=== PATIENT | male | born 2005 | race Caucasian/White ===

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

== ENCOUNTER 2023-07-13 12:40 | Outpatient (RCR) | payer OTHER, SELFPAY ==
--- NOTE | 2023-07-14 15:59 | HP.OTEVAL ---
Patient's Visit Information Visit Information Visit Information: KRISTAL BOWENS is a 17 year old M, referred to Occupational Therapy by Dr. Adrián Simpson, DO, with a diagnosis of right RF proximal phalanx fx.. Date of Evaluation: 07/13/23 Occupational Therapist: Bonnie Adan, OTR/Lucia, CHT Subjective Subjective: This 17 year old male was seen for OT eval with dx of Contusion of right RF w/o damage to nail, Displaced fx of distal phalanx of left RF. DOI 05/01/23. Pt states he was able to leave and go to [place] for care-(x-ray & splint) and was seen than by Dr. Simpson a few days later. pt works for [employer] pt has been employed since December 2022. 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 ROM MP: right RF 0/85 left 80 PIP: right 0/105 left 100 DIP: right 0/40 left +5/ 45 ROM Comments: pt reports he can make a fist without difficulty Much better than a few weeks ago. Strength Heat [employer] Frost Insulator: right 120# left 100# Lateral Pinch: right 22# left 26# Tripod Pinch: right 16# left 18# Sensation Sensation Comments: denies Quick DASH-Disab of Arm,Shoulder& Hand Quick DASH Score: 0 Rehabilitation General Assessment: pt demo with ROM and strength WNL- pt reports he is IND with all ADLs and IADLs and having no issues at work- pt does not demo need for skilled OT service at this time. Pt agrees to and happy to not have to have therapy. Rehabilitation Potential: Good Visit Plan TEXT: Thank you for the opportunity to evaluate your patient. For Medicare and Medicare HMO plans, please review the plan of care and approve it. It will need to be FAXED BACK to us at [phone] for Medicare purposes. Please let me know if there are questions or concerns regarding this plan of care. Physician Signature: Date:
== END 2023-07-13 19:00 | disposition home or self-care (01) ==
LOC: OT 12:40
PROVIDERS: PCP Family Medicine; Visit Provider Orthopaedic Surgery
DX: S60.041D Contusion of right ring finger without damage to nail, subsequent encounter (principal); S62.635D Displaced fracture of distal phalanx of left ring finger, subsequent encounter for fracture with routine healing
CPT/HCPCS: 97166

== ENCOUNTER → 2024-09-23 | Outpatient (CLI) | payer BC, SELFPAY ==
--- NOTE | 2024-09-23 16:07 | RAD_ITS ---
STUDY: X-RAY - LUMBAR SPINE REASON FOR EXAM: Male, 19 years old. Mass effect on. TECHNIQUE: 2 view(s) of the lumbar spine were obtained. COMPARISON: None FINDINGS: Normal lumbar lordosis. There is no substantial scoliosis. There is a normal alignment of the vertebrae. Normal vertebral bodies and endplates. Normal disc space heights. The soft tissue structures are unremarkable. RAD/Lumbar Spine 2 or 3 Views IMPRESSION: Normal x-ray examination of the lumbar spine. Electronically Signed: Mauri Ruiz MD at 10:27 EST ,
== END | disposition home or self-care (01) ==
LOC: MTRAD 16:07
PROVIDERS: PCP Family Medicine; Referring Provider Family Medicine; Visit Provider Family Medicine
DX: M54.50 Low back pain, unspecified (principal)
CPT/HCPCS: 72100

== ENCOUNTER → 2024-10-03 | Outpatient (CLI) | payer BC, SELFPAY ==
[2024-10-03 18:37] LABS: AST(SGOT) 18 U/L (15-37); Alanine Aminotransfer ALT/SGPT 32 U/L (16-61); Cholesterol 166 mg/dL (200); High Density Lipoprotein 36 mg/dL; Triglycerides 68 mg/dL; Very Low Density Lipoprotein 14 mg/dL (5-40)
== END | disposition home or self-care (01) ==
LOC: MTLAB 15:18
PROVIDERS: PCP Family Medicine; Referring Provider Physician Assistant; Visit Provider Physician Assistant
DX: L70.0 Acne vulgaris (principal); Z79.899 Other long term (current) drug therapy
CPT/HCPCS: 36415; 80061; 84450; 84460

== ENCOUNTER 2024-11-28 16:48 | Outpatient (RCR) | payer BC, SELFPAY ==
--- NOTE | 2024-11-28 18:02 | HP.PTEVAL ---
Patient's Visit Information Visit Information Visit Information: KRISTAL BOWENS is a 19 year old M referred to Physical Therapy by Dr. Jerrod Rashid MD with a diagnosis of LBP with R LE radiculopathy. Date of Evaluation: 11/28/24 Physical Therapist: Nico Montanez, PT, ATC Visit Plan Frequency: 1x/Week Duration: 2 Weeks Plan: Pt was issued and instructed on HS stretching and REIL. Pt to continue with I program for one month and then follow up or be discharged at that time. Subjective Subjective: Pt reports he has had LBP and R LE radiculopathy for a few months. Pt reports the R LE radiculopathy extends to the mid hamstring region. Pt reports no PMHx of R LE radiculopathy. Pt reports prolonged sitting always increases his LBP. Pt notes he is limited with his driving secondary to his LBP. Pt reports he has difficulty with standing and ambulating after sitting for prolonged period s of time. Pt reports he did recently have x-rays which revealed no significant findings. Pt denies sleep difficulty secondary to pain. Pt reports walking usually is the only way he can get rid of his pain. 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 0/10 pain while sitting here at rest, 8/10 pain at worst Pain LBP: Pain Intensity (Out of 10): 0 Pain Intensity Range: 8 Objective Objective: Neuro: B LE sensation is WNL to light touch. MMT: B LE's are strong and equal when compared bilaterally ROM: Pt is severely limited with L/S flexion today. All other motions are WFL Repeated movements: RFIS 10x3 NE. RIGOBERTO 10x3 better. Prone prop progression better. REIL best Special tests: pos 90/90 test (60 degree lag) Goals Goal 1:: I with HEP after one visit Goal Time Frame: 1 Week Rehabilitation Potential Physical Therapy Diagnosis: Pt has LBP and R LE radiculopathy secondary to a L/S disc derangement Rehabilitation Potential: Good Anticipated Interventions Patient/Client Instruction: Educate patient on: Condition and Plan of Care For the Purpose of:: To improve self management Therapeutic Exercise to Include: Endurance training, Body mechanics, Postural training, Dynamic Lumbar Stabilization and Beena Exercises For the Purpose of:: To decrease pain and To increase ROM Text: Thank you for the opportunity to evaluate your patient. For Medicare and Medicare HMO plans, please review the plan of care and approve it. It will need to be FAXED BACK to us at [phone] for Medicare purposes. For Medicare only, by signing this I certify the plan of care. Please let me know if there are questions or concerns regarding this plan of care. Physician Signature: Date:
--- NOTE | 2025-03-06 15:04 | HP.PT.NRP ---
Patient Information Patient Information: KRISTAL BOWENS was seen in my office for initial evaluation on 11/28/24. The following Plan of Care was established for this patient: POC Established Initial Frequency: 1x/Week Initial Duration: 2 Weeks Anticipated Interventions Patient/Client Instruction: Educate patient on: Condition and Plan of Care For the Purpose of:: To improve self management Therapeutic Exercise to Include: Endurance training, Body mechanics, Postural training, Dynamic Lumbar Stabilization and Beena Exercises For the Purpose of:: To decrease pain and To increase ROM Last Seen Last Seen: This patient was last seen in our office . Pertinent comments regarding their Physical therapy will appear below: Pt has not returned for greater than 30 days and is discontinued at this time. At this point I will be discontinuing this patient from physical therapy. I would be happy to see this patient again in the future if found appropriate by the physician. Thank you! Nico Montanez, PT, ATC
== END 2024-11-28 19:00 | disposition home or self-care (01) ==
LOC: PT 16:48
PROVIDERS: PCP Family Medicine; Referring Provider Family Medicine; Visit Provider Family Medicine
DX: M54.50 Low back pain, unspecified (principal)
CPT/HCPCS: 97161

== ENCOUNTER → 2024-12-14 | Outpatient (CLI) | payer BC, SELFPAY ==
[2024-12-14 18:25] LABS: AST(SGOT) 28 U/L (<=37); Alanine Aminotransfer ALT/SGPT 28 U/L (<=46); Cholesterol 200 mg/dL (<=190); High Density Lipoprotein 41 mg/dL; Low Density Lipoprotein Calc. 141 mg/dL; Triglycerides 89 mg/dL; Very Low Density Lipoprotein 18 mg/dL (5-40); cholesterol:hdl ratio screen 4.89
== END | disposition home or self-care (01) ==
LOC: MTLAB 15:20
PROVIDERS: PCP Family Medicine; Referring Provider Physician Assistant Medical; Visit Provider Physician Assistant Medical
DX: L70.0 Acne vulgaris (principal); Z79.899 Other long term (current) drug therapy
CPT/HCPCS: 36415; 80061; 84450; 84460

== ENCOUNTER → 2025-01-27 | Outpatient (CLI) | payer BC, SELFPAY ==
--- NOTE | 2025-01-27 11:43 | RAD_ITS ---
PROCEDURE: ABDOMEN SINGLE VIEW 01/27/2025 REASON FOR EXAM: ABDOMINAL PAIN,ACUTE TECHNIQUE: Single view abdomen. 3 total images to include the entire abdomen and pelvis COMPARISON: None available FINDINGS: Gaseous prominence of the sigmoid colon which is extending into the left upper quadrant without evidence of haustral fold thickening. Moderate amount of proximal colonic stool. The rectum appears nondistended, mostly collapsed. No gaseous distention of small bowel. No abnormal abdominal calcification identified. Visualized lung bases appear clear. Visualized osseous structures appear within limits. RAD/Abdomen Single View IMPRESSION: Gaseous prominence of the sigmoid. Moderate proximal colonic stool. No small bowel gaseous distention. Reading Location: [id number]
[2025-01-27 15:09] LABS: Hematocrit 44.9 % (40-54); Hemoglobin 15.1 g/dL (13.0-16.5); Mean Corp Hgb Conc 33.6 g/dL (32-36); Mean Corpuscular Hgb 28.1 pg (27.0-32.0); Mean Corpuscular Volume 83.6 fL (80-94); Mean Platelet Vol. 10.5 fl (6.2-12.0); Platelet Count 276 K/mm3 (150-450); RBC Distribution Width CV 12.8 % (11.6-14.6); RBC Distribution Width SD 38.9 fl (35.1-43.9); Red Blood Count 5.37 M/mm3 (4.6-6.2); White Blood Count 9.8 K/mm3 (4.4-11.0)
[2025-01-27 16:27] LABS: Magnesium 2.1 mg/dL (1.5-2.2)
== END | disposition home or self-care (01) ==
PROVIDERS: PCP Family Medicine
DX: R10.9 Unspecified abdominal pain (principal)
CPT/HCPCS: 36415; 74018; 83735; 85027

== ENCOUNTER → 2025-03-18 | Outpatient (CLI) | payer BC, SELFPAY ==
--- OUTSIDE RECORDS SUMMARY | 2025-03-18 11:39 | XMS RPT_ITS | CCD ---
Author Organization [facility] Care Team Providers Care Allergist/Pediatric Pulmonologist Name Role Phone Rachid YODER, Dr. Elder Primary Care Provider Rachid YODER, Dr. Elder Attending Provider Rachid YODER, Dr. Elder Referring Provider Graf CROWLEY-C, Salome Attending Provider Graf CROWLEY-C, Salome Referring Provider Alejandro Iraheta Attending Provider Alejandro Iraheta Referring Provider [phone] Rachid YODER, Dr. Elder Primary Care Provider Rachid YODER, Dr. Elder Attending Provider Rachid YODER, Dr. Elder Referring Provider [phone] McMorrow POWER PLANT TECHNICIAN-CGanesh Attending Provider [phone] McMorrow POWER PLANT TECHNICIAN-C, Ganesh Referring Provider Jerrod Rashid Attending Unavailable Jerrod Rashid Referring Unavailable Rachid, Jerrod Primary Care Unavailable Salome Abrams Attending Unavailable Salome Abrams Referring Unavailable Rashid, Jerrod Primary Care Unavailable Jerrod Rashid Attending Unavailable Jerrod Rashid Referring Unavailable Rachid, Jerrod Primary Care Unavailable Alejandro Iraheta Attending Unavailable Alejandro Iraheta Referring Unavailable Jerrod Rashid Primary Care Unavailable McMorrow POWER PLANT TECHNICIANGanesh Attending Unavailable Allanorrow POWER PLANT TECHNICIANGanesh Referring Unavailable Rachid Jerrod Primary Care Unavailable Medications Current Medications Medication Drug Class(es) Dates Sig (Normalized) Sig (Original) ARIPiprazole 10 mg oral tablet (5 sources) Atypical Antipsychotic Start: 08-30-2021 Aripiprazole 10 mg tablet Active NMA PO August 30, 2021 1:00am Start: 08-30-2021 Aripiprazole A ctive TAB PO August 30, 2021 12:00am FLUoxetine 40 mg oral capsule (5 sources) Serotonin Reuptake Inhibitor Start: 08-30-2021 Fluoxetine 40 mg capsule Active NMA PO August 30, 2021 1:00am Start: 08-30-2021 Fluoxetine Act olimpia CAP PO August 30, 2021 12:00am Multivitamin With Iron (2 sources) Start: 08-30-2021 take 1 tablet by mouth once daily Multivitamin With Iron Active 1 TABLET PO DAILY August 30, 2021 12:00am Multivitamin With Iron tablet (3 sources) Start: 08-30-2021 Multivitamin W ith Iron tablet Active 1 {tbl} PO DAILY August 30, 2021 1:00am Problems Problem Classification Problem Date Documented Date Episodic/Chronic Abdominal pain (1 source) Unspecified abdominal pain; Translations: [Unspecified abdominal pain] Onset: 02-02-2025 Episodic Administrative/social admission (4 sources) Administrative reason for encounter; Translations: [Encounter for other administrative examinations] 01-21-2023 Episodic Deficiency and other anemia (5 sources) Anemia; Translations: [Anemia, unspecified] 08-30-2021 Episodic Disorders usually diagnosed in infancy, childhood, or adolescence (5 sources) Autistic disorder; Translations: [Autistic disorder] 08-30-2021 Chronic Open wounds of head; neck; and trunk (5 sources) Laceration of forehead; Translations: [Laceration without foreign body of other part of head, initial encounter] 08-30-2021 Episodic Other skin disorders (1 source) Acne vulgaris; Translations: [Acne vulgaris] Onset: 12-15-2024 Episodic Unclassified (1 source) Low back pain, unspecified; Translations: [Low back pain, unspecified] Onset: 03-09-2025 Results Test Name Value Interpretation Reference Range Facility Abdomen Single Viewon 2024 Abdomen Single View [facility] Imaging Services [address] [place] [address] Abdomen Single View MR#: [id number] Acct: [id number] Name: KRISTAL BOWENS Rep #: [id number] : 2005 M 19 From: Jayesh Llanos MD PCP: Dr. Jerrod Rashid MD Status: REG CLI Study: Abdomen Single View Date of Exam: 01/27/25 Exam# [id number] Ordering Dr: Ganesh Loera NP, NP -C PROCEDURE: ABDOMEN SINGLE VIEW 01/27/2025 REASON FOR EXAM: ABDOMINAL PAIN,ACUTE TECHNIQUE: Single view abdomen. 3 total images to include the entire abdomen and pelvis COMPARISON: None available FINDINGS: Gaseous prominence of the sigmoid colon which is extending into the left upper quadrant without evidence of haustral fold thickening. Moderate amount of proximal colonic stool. The rectum appears nondistended, mostly collapsed. No gaseous distention of small bowel. No abnormal abdominal calcification identified. Visualized lung bases appear clear. Visualized osseous structures appear within limits. RAD/Abdomen Single View IMPRESSION: Gaseous prominence of the sigmoid. Moderate proximal colonic stool. No small bowel gaseous distention. Reading Location: [facility] CC: Ganesh Loera; Dr. Jerrod Rashid MD Manager Business Process: Signed Normal [facility] CBC-Complete Blood Cnt No Di ffon 01-27-2025 Erythrocyte distribution width (RBC) [Ratio] 12.8 % Normal 11.6-14.6 [facility] Comment on above: Order Comment: Order Date: 01/27/25 Order Info: [id number] - CBC Performed By: #### L 100.0500 #### [facility] [address] [place], [address] Hematocrit (Bld) [Volume fraction] 44.9 % Normal 40-54 [facility] Comment on above: Order Comment: Order Date: 01/27/25 Order Info: [id number] - CBC Performed By: #### L 100.0500 #### [facility] [address] [place], [address] Hemoglobin (Bld) [Mass/Vol] 15.1 g/dL Normal 13.0-16.5 [facility] Comment on above: Order Comment: Order Date: 01/27/25 Order Info: [id number] - CBC Performed By: #### L 100.0500 #### [facility] [address] [place], [address] MCH (RBC) [Entitic mass] 28.1 pg Normal 27.0-32.0 [facility] Comment on above: Order Comment: Order Date: 01/27/25 Order Info: [id number] - CBC Performed By: #### L 100.0500 #### [facility] [address] [place], [address] MCHC (RBC) [Mass/Vol] 33.6 g/dL Normal 32-36 [facility] Comment on above: Order Comment: Order Date: 01/27/25 Order Info: [id number] - CBC Performed By: #### L 100.0500 #### [facility] [address] [place], [address] MCV (RBC) [Entitic vol] 83.6 fL Normal 80-94 [facility] Comment on above: Order Comment: Order Date: 01/27/25 Order Info: [id number] - CBC Performed By: #### L 100.0500 #### [facility] [address] [place], [address] Platelet mean volume (Bld) [Entitic vol] 10.5 fL Normal 6.2-12.0 [facility] Comment on above: Order Comment: Order Date: 01/27/25 Order Info: [id number] - CBC Performed By: #### L 100.0500 #### [facility] [address] [place], [address] Platelets (Bld) [#/Vol] 276 10*3/uL Normal 150-450 [facility] Comment on above: Order Comment: Order Date: 01/27/25 Order Info: [id number] - CBC Performed By: #### L 100.0500 #### [facility] [address] [place], [address] RBC (Bld) [#/Vol] 5.37 10*6/uL Normal 4.6-6.2 [facility] Comment on above: Order Comment: Order Date: 01/27/25 Order Info: [id number] - CBC Performed By: #### L 100.0500 #### [facility] [address] [place], [address] RDW SD 38.9 fl Normal 35.1-43.9 [facility] Comment on above: Order Comment: Order Date: 01/27/25 Order Info: [id number] - CBC Performed By: #### L 100.0500 #### [facility] [address] [place], [address] WBC (Bld) [#/Vol] 9.8 10*3/uL Normal 4.4-11.0 [facility] Comment on above: Order Comment: Order Date: 01/27/25 Order Info: [id number] - CBC Performed By: #### L 100.0500 #### [facility] [address] [place], [address] Erythrocyte distribution wid th ratioOrdered By: Ganesh Loera on 01-27-2025 Erythrocyte distribution width (RBC) [Ratio] 12.8 % 11.6-14.6 [facility] Erythrocyte distribution wid th standard deviationOrdered By: Ganesh Loera on 01-27-2025 Erythrocyte distribution width (RBC) [Ratio] 38.9 fl 35.1-43.9 [facility] Hematocrit Auto (Bld) [Volum e fraction]Ordered By: Ganesh Loera on 01-27-2025 Hematocrit (Bld) [Volume fraction] 44.9 % 40-54 [facility] Hemoglobin measurementOrdere d By: Ganesh Loera on 01-27-2025 Hemoglobin (Bld) [Mass/Vol] 15.1 g/dL 13.0-16.5 [facility] MCV (mean corpuscular volume ) determinationOrdered By: Ganesh Loera on 01-27-2025 MCV (RBC) [Entitic vol] 83.6 fL 80-94 [facility] Magnesiumon 01-27-2025 Magnesium [Mass/Vol] 2.1 mg/dL Normal 1.5-2.2 [facility] Comment on above: Order Comment: KISHA Drummond FAX RESULTS TO [phone] Performed By: #### L 501.4100, L500.4100, L501.4403 #### [facility] [address] [place], [place], [address] Magnesium measurement (mass/ volume)Ordered By: Ganesh Loera on 01-27-2025 Magnesium (Unsp spec) [Mass/Vol] 2.1 mg/dL 1.5-2.2 [facility] Mean corpuscular hemoglobin (MCH) determinationOrdered By: Ganesh Evaristo on 01-27-2025 MCH (RBC) [Entitic mass] 28.1 pg 27.0-32.0 [facility] Mean corpuscular hemoglobin concentration (MCHC) determinationOrdered By: Ganesh Evaristo on 01-27-2025 MCHC (RBC) [Mass/Vol] 33.6 g/dL 32-36 [facility] Mean platelet volume determi nationOrdered By: Ganesh McMorrow on 01-27-2025 Platelet mean volume (Bld) [Entitic vol] 10.5 fL 6.2-12.0 [facility] Platelet countOrdered By: An justina McMorr on 01-27-2025 Platelets (Bld) [#/Vol] 276 10*3/uL 150-450 [facility] RBC Auto (Bld) [#/Vol]Ordere d By: Ganesh Allanorrerica on 01-27-2025 RBC (Bld) [#/Vol] 5.37 10*6/uL 4.6-6.2 [facility] White blood cell (WBC) count Ordered By: Ganesh Allanorrerica on 01-27-2025 WBC (Bld) [#/Vol] 9.8 10*3/uL 4.4-11.0 [facility] AST(SGOT)on 12-14-2024 AST [Catalytic activity/Vol] 28 U/L Normal <=37 [facility] Comment on above: Order Comment: KISHA Drummond FAX RESULTS TO [phone] Performed By: #### L 501.4100, L500.4100, L501.4405 #### [facility] [address] [place], [place], [address] Alanine Aminotransferas (SGP T)on 12-14-2024 ALT [Catalytic activity/Vol] 28 U/L Normal <=46 [facility] Comment on above: Order Comment: PLEAS E FAX RESULTS TO [phone] Performed By: #### L 501.4100, L500.4100, L501.4405 #### [facility] [address] [place], [place], [address] Calculated very low density lipoprotein (VLDL) cholesterol measurementOrdered By: Alejandro Porter on 12-14-2024 Calculated very low density lipoprotein (VLDL) cholesterol measurement 18 mg/dL 5-40 [facility] VLDL Cholesterol 18 mg/dL 5-40 [facility] LDL calc ser/plasOrdered By: Alejandro Porter on 12-14-2024 Cholesterol in LDL [Mass/Vol] 141 mg/dL [facility] Comment on above: Qahztmamdk=866-357 m g/dL & Higher Yfpt=553 mg/dL or greater LDL Cholesterol, Calculated 141 mg/dL [facility] Comment on above: Jsflsoplpf=882-866 m g/dL & Higher Brvw=290 mg/dL or greater Laboratory - Chemistry and C hemistry - challengeOrdered By: Alejandro Porter on 12-14-2024 AST [Catalytic activity/Vol] 28 U/L <38 [facility] Lipid Profileon 12-14-2024 CHOL:HDL 4.89 Normal [facility] Comment on above: Order Comment: PLEAS E FAX RESULTS TO [phone] Performed By: #### L 501.4100, L500.4100, L501.4405 #### [facility] [address] [place], [place], [address] Cholesterol [Mass/Vol] 200 mg/dL High <=190 [facility] Comment on above: Order Comment: PLEAS E FAX RESULTS TO [phone] Result Comment: Chol esterol level, Desirable <200 mg/dL Borderline high cholesterol 200-239 mg/dL High cholesterol >=240 mg/dL Recommendations of the NCEP Adult Treatment Panel for the following risk-cutoff thresholds for the [place] population. Performed By: #### L 501.4100, L500.4100, L501.4405 #### [facility] [address] [place], [address] Cholesterol in HDL [Mass/Vol] 41 mg/dL Normal [facility] Comment on above: Order Comment: PLEAS E FAX RESULTS TO [phone] Result Comment: [place] on[place] Cholesterol Education Program (NCEP) guidelines: <40 mg/dL: Low HDL-cholesterol (major risk factor for CHD) >= 60 mg/dL: High HDL-cholesterol (negative risk factor for CHD) HDL-cholesterol is affected by a number of factors, e.g. smoking, exercise, hormones, sex and age. Performed By: #### L 501.4100, L500.4100, L501.4405 #### [facility] [address] [place], [address] Cholesterol in LDL [Mass/Vol] 141 mg/dL Normal [facility] Comment on above: Order Comment: PLEAS E FAX RESULTS TO [phone] Result Comment: Bord rjalmm=611-504 mg/dL Higher Jblo=532 mg/dL or greater Performed By: #### L 501.4100, L500.4100, L501.4405 #### [facility] [address] [place], [address] Cholesterol in VLDL [Mass/Vol] 18 mg/dL Normal 5-40 [facility] Comment on above: Order Comment: PLEAS E FAX RESULTS TO [phone] Performed By: #### L 501.4100, L500.4100, L501.4405 #### [facility] [address] [place], [address] Triglyceride [Mass/Vol] 89 mg/dL Normal [facility] Comment on above: Order Comment: KISHA Drummond FAX RESULTS TO [phone] Result Comment: The drugs N-Acetylcysteine and Metamizole may falsely depress this assay. Normal range: <150 mg/dL Borderline High: 150-199 mg/dL High: 200-499 mg/dL Very High: >500 mg/dL Performed By: #### L 501.4100, L500.4100, L501.4405 #### [facility] [place], [address] Screening total cholesterol/ high density lipoprotein (HDL) cholesterol ratioOrdered By: Alejandro Porter on 12-14-2024 Cholesterol.total/Cholest cristal in HDL [Mass ratio] 4.89 {ratio} [facility] Serum or plasma alanine raya otransferase (ALT) measurementOrdered By: Alejandro Porter on 12-14-2024 ALT [Catalytic activity/Vol] 28 U/L <47 [facility] Serum or plasma cholesterol in HDL measurement (mass/volume)Ordered By: Alejandro Porter on 12-14-2024 Cholesterol in HDL [Mass/Vol] 41 mg/dL >40 [facility] Comment on above: National Cholesterol Education Program (NCEP) guidelines:<40 mg/dL: Low HDL-cholesterol (major risk factor for CHD)>= 60 mg/dL: High HDL-cholesterol (negative risk factor for CHD)HDL-cholesterol is affected by a number of factors, e.g. smoking, exercise, hormones, sex and age. Serum or plasma cholesterol measurement (mass/volume)Ordered By: Alejandro Porter on 12-14-2024 Cholesterol [Mass/Vol] 200 mg/dL High <191 [facility] Comment on above: Cholesterol level, D esirable <200 mg/dLBorderline high cholesterol 200-239 mg/dLHigh cholesterol >=240 mg/dLRecommendations of the NCEP Adult Treatment Panel for the following risk-cutoff thresholds for the [place] population. Triglycerides measurementOrd ered By: Alejandro Porter on 12-14-2024 Triglyceride [Mass/Vol] 89 mg/dL <199 [facility] Comment on above: The drugs N-Acetylcy steine and Metamizole may falsely depress this assay. Normal range: <150 mg/dLBorderline High: 150-199 mg/dLHigh: 200-499 mg/dLVery High: >500 mg/dL Inital Evaluation (1) - PTon 11-28-2024 Inital Evaluation (1) - PT [facility] [address] [place] [address] / REHABILITATION SERVICES INITIAL EVALUATION MR#: [id number] Acct: [id number] Name: KRISTAL BOWENS Rep #: [id number] : 2005 19 From: Nico Montanez PT, ATC Referring Dr.: Dr. Jerrod Rashid MD Status: REG R CR Insurance: [employer] [facility] [employer] [employer] Patient's Visit Information Visit Information Visit Information: KRISTAL BOWENS is a 19 year old M referred to Physical Therapy by Dr. Jerrod Rashid MD with a diagnosis of LBP with R LE radiculopathy. Date of Evaluation: 11/28/24 Physical Therapist: Nico Montanez, PT, ATC Visit Plan Frequency: 1x/Week Duration: 2 Weeks Plan: Pt was issued and instructed on HS stretching and REIL. Pt to continue with I program for one month and then follow up or be discharged at that time. Subjective Subjective: Pt reports he has had LBP and R LE radiculopathy for a few months. Pt reports the R LE radiculopathy extends to the mid hamstring region. Pt reports no PMHx of R LE radiculopathy. Pt reports prolonged sitting always increases his LBP. Pt notes he is limited with his driving secondary to his LBP. Pt reports he has difficulty with standing and ambulating after sitting for prolonged period s of time. Pt reports he did recently have x-rays which revealed no significant findings. Pt denies sleep difficulty secondary to pain. Pt reports walking usually is the only way he can get rid of his pain. 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 0/10 pain while sitting here at rest, 8/10 pain at worst Pain LBP: Pain Intensity (Out of 10): 0 Pain Intensity Range: 8 Objective Objective: Neuro: B LE sensation is WNL to light touch. MMT: B LE's are strong and equal when compared bilaterally ROM: Pt is severely limited with L/S flexion today. All other motions are WFL Repeated movements: RFIS 10x3 NE. RIGOBERTO 10x3 better. Prone prop progression better. REIL best Special tests: pos 90/90 test (60 degree lag) Goals Goal 1:: I with HEP after one visit Goal Time Frame: 1 Week Rehabilitation Potential Physical Therapy Diagnosis: Pt has LBP and R LE radiculopathy secondary to a L/S disc derangement Rehabilitation Potential: Good Anticipated Interventions Patient/Client Instruction: Educate patient on: Condition and Plan of Care For the Purpose of:: To improve self management Therapeutic Exercise to Include: Endurance training, Body mechanics, Postural training, Dynamic Lumbar Stabilization and Beena Exercises For the Purpose of:: To decrease pain and To increase ROM Text: Thank you for the opportunity to evaluate your patient. For Medicare and Medicare HMO plans, please review the plan of care and approve it. It will need to be FAXED BACK to us at [phone] for Medicare purposes. For Medicare only, by signing this I certify the plan of care. Please let me know if there are questions or concerns regarding this plan of care. Physician Signature: Date: ____ 11/28/24 1802 CC: Dr. Jerrod Rashid MD [facility] Signed Normal [facility] AST(SGOT)on 10-03-2024 AST [Catalytic activity/Vol] 18 U/L Normal 15-37 [facility] Comment on above: Performed By: #### L 501.4100, L500.4100, L501.4405 #### [facility] [address] [place], [address] Alanine Aminotransferas (SGP T)on 10-03-2024 ALT [Catalytic activity/Vol] 32 U/L Normal 16-61 [facility] Comment on above: Performed By: #### L 501.4100, L500.4100, L501.4405 #### [facility] [address] [place], [address] High density lipoprotein (HD L) measurementOrdered By: Salome Joseph on 10-03-2024 Cholesterol in HDL [Mass/Vol] 36 mg/dL Low >40 [facility] Comment on above: The drugs N-Acetylcy steine and Metamizole may falsely depress this assay. Reference Range HDL <40 mg/dL Low HDL Cholesterol HDL >or= 60 mg/dL High HDL Cholesterol Laboratory - Chemistry and C hemistry - challengeOrdered By: Salome Joseph on 10-03-2024 AST [Catalytic activity/Vol] 18 U/L 15-37 [facility] Lipid Profileon 10-03-2024 Cholesterol [Mass/Vol] 166 mg/dL Normal 200 [facility] Comment on above: Result Comment: <200 mg/dL Desirable 200-240 mg/dL Borderline >240 mg/dL High Risk Performed By: #### L 501.4100, L500.4100, L501.4405 #### [facility] [address] [place], [address] Cholesterol in HDL [Mass/Vol] 36 mg/dL Low [facility] Comment on above: Result Comment: The drugs N-Acetylcysteine and Metamizole may falsely depress this assay. Reference Range HDL <40 mg/dL Low HDL Cholesterol HDL >or= 60 mg/dL High HDL Cholesterol Performed By: #### L 501.4100, L500.4100, L501.4405 #### [facility] [address] [place], [address] Cholesterol in LDL [Mass/Vol] 116 mg/dL Normal 0-130 [facility] Comment on above: Performed By: #### L 501.4100, L500.4100, L501.4405 #### [facility] [address] [place], [address] Cholesterol in VLDL [Mass/Vol] 14 mg/dL Normal 5-40 [facility] Comment on above: Performed By: #### L 501.4100, L500.4100, L501.4405 #### [facility] [address] [facility] [place], [place], [address] Triglyceride [Mass/Vol] 68 mg/dL Normal [facility] Comment on above: Result Comment: The drugs N-Acetylcysteine and Metamizole may falsely depress this assay. Serum Triglycerides Reference Interval Normal <150 mg/dL Borderline high 150 - 199 mg/dL High 200 - 499 mg/dL Very High > or = 500 mg/dL Performed By: #### L 501.4100, L500.4100, L501.4405 #### [facility] [address] [facility] [place], [place], [address] Low density lipoprotein (LDL ) cholesterol measurementOrdered By: Salome Joseph on 10-03-2024 Cholesterol in LDL [Mass/Vol] 116 mg/dL 0-130 [facility] Serum or plasma alanine raya otransferase (ALT) measurementOrdered By: Salome Joseph on 10-03-2024 ALT [Catalytic activity/Vol] 32 U/L 16-61 [facility] Serum or plasma cholesterol measurement (mass/volume)Ordered By: Salome Joseph on 10-03-2024 Cholesterol [Mass/Vol] 166 mg/dL <200 [facility] Comment on above: <200 mg/dL Desirable 200-240 mg/dL Borderline >240 mg/dL High Risk Triglycerides measurementOrd ered By: Salome Joseph on 10-03-2024 Triglyceride [Mass/Vol] 68 mg/dL <199 [facility] Comment on above: The drugs N-Acetylcy steine and Metamizole may falsely depress this assay.Serum Triglycerides Reference Interval Normal <150 mg/dL Borderline high 150 - 199 mg/dL High 200 - 499 mg/dL Very High > or = 500 mg/dL Very low density lipoprotein (VLDL) cholesterol measurementOrdered By: Salome Joseph on 10-03-2024 VLDL Cholesterol 14 mg/dL 5-40 [facility] Lumbar Spine 2 or 3 Viewson 09-23-2024 Lumbar Spine 2 or 3 Views [facility] Imaging Services [address] [place] [address] Lumbar Spine 2 or 3 Views MR#: [id number] Acct: [id number] Name: KRISTAL BOWENS Rep #: [id number] : 2005 M 19 From: Mauri Ruiz MD PCP: Dr. Jerrod Rashid MD Status: REG CLI Study: Lumbar Spine 2 or 3 Views Date of Exam: Exam# [id number] Ordering Dr: Jerrod Rashid MD [id number] STUDY: X-RAY - LUMBAR SPINE REASON FOR EXAM: Male, 19 years old. Mass effect on. TECHNIQUE: 2 view(s) of the lumbar spine were obtained. COMPARISON: None FINDINGS: Normal lumbar lordosis. There is no substantial scoliosis. There is a normal alignment of the vertebrae. Normal vertebral bodies and endplates. Normal disc space heights. The soft tissue structures are unremarkable. RAD/Lumbar Spine 2 or 3 Views IMPRESSION: Normal x-ray examination of the lumbar spine. Electronically Signed: Mauri Ruiz MD at 10:27 EST , CC: Dr. Jerrod Rashid MD Manager Business Process: Signed Normal [facility] Absolute lymphocyte countOrd ered By: Dr. Rashid on 09-12-2022 Lymphocytes Auto (Unsp spec) [#/Vol] 2.28 10*3/uL 0.83-4.51 [facility] Basophil percentageOrdered B y: Dr. Rashid on 09-12-2022 Basophils/100 WBC (Bld) 0.3 % 0-1 [facility] Bilirubin [Mass/Vol] 0.50 mg/dL 0.20-1.00 [facility] Comment on above: For patients on eltr ombopag therapy, use of Dimension [place] TBIL is not recommended. Chloride [Moles/Vol] 102 mmol/L 98-107 [facility] Eosinophils/100 WBC (Bld) 1.3 % 0-3 [facility] Glucose [Mass/Vol] 81 mg/dL 74-106 [facility] Neutrophils (Bld) [#/Vol] 4.9 10*3/uL 2.0-7.7 [facility] Neutrophils/100 WBC (Bld) 62.1 % 34-64 [facility] Potassium [Moles/Vol] 4.1 mmol/L 3.5-5.1 [facility] Protein [Mass/Vol] 7.9 g/dL 6.4-8.2 [facility] Sodium [Moles/Vol] 138 mmol/L 136-145 [facility] WBC (Bld) [#/Vol] 7.9 10*3/uL 4.5-13.0 [facility] Blood erythrocytes count (nu mber/volume)Ordered By: Dr. Rashid on 09-12-2022 RBC (Bld) [#/Vol] 5.77 10*6/uL 4.5-5.1 [facility] Blood hemoglobin measurement (mass/volume)Ordered By: Dr. Rashid on 09-12-2022 Hemoglobin (Bld) [Mass/Vol] 15.7 g/dL 13.0-16.5 [facility] Blood lymphocytes/100 leukoc ytesOrdered By: Dr. Rashid on 09-12-2022 Lymphocytes/100 WBC (Bld) 28.7 % 25-45 [facility] Blood monocytes/100 leukocyt esOrdered By: Dr. Rashid on 09-12-2022 Monocytes/100 WBC (Bld) 7.1 % 3-6 [facility] Blood platelet mean volumeOr dered By: Dr. Rashid on 09-12-2022 Platelet mean volume (Bld) [Entitic vol] 10.4 fL 6.2-12.0 [facility] Determination of erythrocyte mean corpuscular volume (MCV)Ordered By: Dr. Rashid on 09-12-2022 MCV (RBC) [Entitic vol] 83.2 fL 78-96 [facility] Hematocrit Auto (Bld) [Volum e fraction]Ordered By: Dr. Rashid on 09-12-2022 Hematocrit (Bld) [Volume fraction] 48.0 % 36-47 [facility] Laboratory - Chemistry and C hemistry - challengeOrdered By: Dr. Rashid on 09-12-2022 ALP [Catalytic activity/Vol] 141 U/L 52-171 [facility] ALT [Catalytic activity/Vol] 33 U/L 16-61 [facility] CO2 [Moles/Vol] 29.0 mmol/L 21.0-32.0 [facility] Free T4 [Mass/Vol] 0.99 ng/dL 0.76-1.46 [facility] Globulin (S) [Mass/Vol] 3.6 g/dL 2.2-4.2 [facility] Urea nitrogen/Creatinine [Mass ratio] 19.9 mg/mg 10-20 [facility] - Hematology and Cell countsOrdered By: Dr. Rasihd on 09-12-2022 Erythrocyte distribution width (RBC) [Entitic vol] 38.5 fL 35.1-43.9 [facility] Erythrocyte distribution width (RBC) [Ratio] 12.7 % 11.6-14.6 [facility] Immature granulocytes/100 WBC (Bld) 0.500 % 0.0-0.9 [facility] Comment on above: IG% - Immature Granu locytes (promyelocytes, myelocytes and metamyelocytes) > 1% indicates that a LEFT SHIFT is Present. MCH (RBC) [Entitic mass] 27.2 pg 25.0-35.0 [facility] Nucleated RBC/100 WBC (Bld) [Ratio] 0 % 0-5 [facility] MCHC Auto (RBC) [Mass/Vol]Or dered By: Dr. Rashid on 09-12-2022 MCHC (RBC) [Mass/Vol] 32.7 g/dL 32-36 [facility] No Panel InformationOrdered By: Dr. Rashid on 09-12-2022 Estimated GFR (MDRD) Amer 171 mL/min >60 [facility] Comment on above: GFR Calc Estimated GFR (MDRD) Non-Af Amer 142 mL/min >60 [facility] Comment on above: Non- GFR Calc Thyroid Stimulating Hormone (TSH) 3.06 uIU/mL 0.358-3.74 [facility] Platelets bldOrdered By: Dr. Rashid on 09-12-2022 Platelets (Bld) [#/Vol] 304 10*3/uL 150-450 [facility] Serum or plasma albumin cathy urement (mass/volume)Ordered By: Dr. Rashid on 09-12-2022 Albumin [Mass/Vol] 4.3 g/dL 3.2-5.0 [facility] Serum or plasma albumin/glob ulin mass ratioOrdered By: Dr. Rashid on 09-12-2022 Albumin/Globulin [Mass ratio] 1.2 {ratio} 0.9-2.4 [facility] Serum or plasma calcium cathy urement (mass/volume)Ordered By: Dr. Rashid on 09-12-2022 Calcium [Mass/Vol] 9.9 mg/dL 8.5-10.1 [facility] Serum or plasma creatinine m easurement (mass/volume)Ordered By: Dr. Rashid on 09-12-2022 Creatinine [Mass/Vol] 0.76 mg/dL 0.70-1.30 [facility] Comment on above: The validity of the calculated GFR & GFRAA in patients over 70 years has not been determined. Clinical correlation is essential. Serum or plasma urea nitroge n measurement (mass/volume)Ordered By: Dr. Rashid on 09-12-2022 Urea nitrogen [Mass/Vol] 15 mg/dL 7-18 [facility] Thin prep Papanicolaou smear with manual screeningOrdered By: Dr. Rashid on 09-12-2022 Thin prep Papanicolaou smear with manual screening 20 U/L 15-37 [facility] Thin prep Papanicolaou smear with manual screening 7 5-15 [facility] Whole blood hemoglobin A1c/t otal hemoglobin ratio (mass fraction)Ordered By: Dr. Rashid on 09-12-2022 HbA1c (Bld) [Mass fraction] 5.5 % 3.8-5.6 [facility] Comment on above: Normal < 5.7 % Predi abetic 5.7 - 6.4 % Diabetic >or= 6.5 % Please note range changes. Encounters Encounter Date Encounter Type Care Provider Facility Start: 01-27-2025 End: 01-27-[address] Jerrod Rashid MD Work Phone: [facility] Work Phone: Start: 01-27-2025 End: 01-27-2025 Patient encounter procedure Ganesh Loera P[employer] TECHNICIAN-C -Laboratory [place] Work Phone: Start: 01-27-2025 End: 01-27-2025 ambulatory Ganesh Evaristo [employer] PL[employer] TECHNICIAN Facility:[facility] Start: 12-14-2024 End: 12-14-[address] Jerrod Rashid MD Work Phone: [facility] Work Phone: Start: 12-14-2024 End: 12-14-2024 Patient encounter procedure Alejandro Charlotte PA -Laboratory, [place] Work Phone: Start: 12-14-2024 End: 12-14-2024 ambulatory Alejandro Goad PA Facility:[facility] Start: 11-28-2024 End: 11-28-[address] Jerrod Rashid MD -Physical Therapy Work Phone: Start: 11-28-[address] Jerrod Rashid MD -Physical Therapy Work Phone: Start: 11-28-2024 End: 11-28-[address] Jerrod Rashid MD Work Phone: -Physical Therapy Start: 10-03-2024 End: 10-03-2024 Patient encounter procedure Salome Jake PA-C -Laboratory, [place] Work Phone: Start: 10-03-2024 End: 10-03-2024 ambulatory Salome [place] PA Facility:[facility] Start: 09-23-2024 End: 09-23-[address] Jerrod Rashid MD -Radiology, [place] Work Phone: Start: 09-23-2024 End: 09-23-2024 ambulatory Jerrod Rashid Facility:[facility] Start: 07-13-2023 End: 07-13-2023 ambulatory [facility] Work Phone: Start: 07-13-2023 End: 07-13-2023 Discharged Recurring [facility]-Occupational Therapy Work Phone: Start: 09-12-2022 End: 09-12-2022 ambulatory [facility] Work Phone: Start: 09-12-2022 End: 09-12-2022 Patient encounter procedure [facility], [place] Procedures Date Procedure Procedure Detail Performing Clinician Start: 01-27-2025 Plain X-ray abdomen Dr. Jerrod Rashid MD Work Phone: Start: 09-23-2024 X-ray of lumbar spin e, two or three views Dr. Jerrod Rashid MD Work Phone: Payers Date Payer Category Payer Self-pay [id number] 2024 Self-pay [id number] 2024 Unknown [id number] Unknown ANTHEM [id number] Unknown [id number] Unknown [id number] Unknown [facility] [id number] Unknown [id number] Unknown [id number] Unknown [id number] [id number] Unknown [id number] [id number] Unknown [id number] Social History Date Type Detail Facility Start: 08-30-2021 End: 01-21-2023 Tobacco smoking status NHIS Unknown if ever smoked [facility] Start: 2005 Sex Assigned At Male [facility] Start: 01-21-2023 Tobacco smoking stat us NHIS Never smoked tobacco (finding) [facility] Start: 12-15-2024 Sex Male (finding) [facility] Discharge summary 03-06-2025 Note Date & Type Note Facility 03-06-2025 Discharge summary Note Date/Time March 06, 2025 3:04p [facility] Physical [facility] [address] [place] [address] [address] [place] [address] / REHABILITATION SERVICES DISCHARGE SUMMARY MR#: [id number] Acct: [id number] Name: KRISTAL BOWENS Rep #: [id number] : 2005 19 From: Nico Montanez PT, ATC Referring Dr.: Dr. Jerrod Rashid MD Status: REG R Insurance: [facility] PACKAGE PLAN Patient Information Patient Information: KRISTAL BOWENS was seen in my office for initial evaluation on 11/28/24. The following Plan of Care was established for this patient: POC Established Initial Frequency: 1x/Week Initial Duration: 2 Weeks Anticipated Interventions Patient/Client Instruction: Educate patient on: Condition and Plan of Care For the Purpose of:: To improve self management Therapeutic Exercise to Include: Endurance training, Body mechanics, Postural training, Dynamic Lumbar Stabilization and Beena Exercises For the Purpose of:: To decrease pain and To increase ROM Last Seen Last Seen: This patient was last seen in our office . Pertinent comments regarding their Physical therapy will appear below: Pt has not returned for greater than 30 days and is discontinued at this time. At this point I will be discontinuing this patient from physical therapy. I would be happy to see this patient again in the future if found appropriate by the physician. Thank you! Nico Montanez, PT, ATC <Electronically signed by Nico Montanez PT, ATC> 03/06/25 1504 CC: Dr. Jerrod Rashid MD ~ [facility] Signed [facility] Work Phone: Discharge summary 03-06-2025 Note Date & Type Note Facility 03-06-2025 Discharge summary [facility] Radiology Diagnostic study note 01-28-2025 Note Date & Type Note Facility 01-28-2025 Radiology Diagnostic study note [facility] Imaging Services [address] [place], [place] [address] Abdomen Single View MR#: [id number] Acct: [id number] Name: KRISTAL BOWENS Rep #: [id number] : 2005 M 19 From: Dany Llanos MD PCP: Dr. Jerrod Rashid MD Status: REG CLI Study:Abdomen Single View Date of Exam: 01/27/25 Exam# [id number] Ordering Dr: Ganesh Loera NP [employer] TECHNICIAN-C PROCEDURE: ABDOMEN SINGLE VIEW 01/27/2025 REASON FOR EXAM: ABDOMINAL PAIN,ACUTE TECHNIQUE: Single view abdomen. 3 total images to include the entire abdomen and pelvis COMPARISON: None available FINDINGS: Gaseous prominence of the sigmoid colon which is extending into the left upper quadrant without evidence of haustral fold thickening. Moderate amount of proximal colonic stool. The rectum appears nondistended, mostly collapsed. No gaseous distention of small bowel. No abnormal abdominal calcification identified. Visualized lung bases appear clear. Visualized osseous structures appear within limits. RAD/Abdomen Single View IMPRESSION: Gaseous prominence of the sigmoid. Moderate proximal colonic stool. No small bowel gaseous distention. Reading Location: [id number] CC: Ganesh Loera; Dr. Jerrod Rashid MD ~ Manager Business Process: Signed [facility] Evaluation note Note Date & Type Note Facility Evaluation note No assessment information availa ble [facility] Work Phone: Reason for referral (narrative) Note Date & Type Note Facility Reason for referral (narrative) No reason for referral information available [facility] Work Phone: Family History No Family History Records Found Relationship Condition Age at Onset Recorded Date/T juan m Not Specified Coronary artery disease Unknown Depression Unknown Hypertension Unknown Chief Complaint and Reason for Visit Chief Complaint FX OF RING FINGER RX HERE Chief Complaint Admit Date lumbar back pain September 23, 2024 4 :03pm FASTING October 03, 2024 3 :17pm BACK PAIN. RX HERE November 28, 2024 4:4 8pm SKIN- FASTING December 14, 2024 3:1 9pm Chief Complaint Admit Date BACK PAIN. RX HERE November 28, 2024 4:4 8pm SKIN- FASTING December 14, 2024 3:1 9pm Summary Purpose Advance Directives No Advanced Directives Records Found Additional Source Comments Care Teams (unrecognized sec tion and content) Team Status: Active Member Role Status Dates Dr. Jerrod Rashid MD Primary Care Provider Active Team Status: Active Member Role Status Dates Dr. Jerrod Rashid MD Primary Care Provider Active Start: November 28, 2024 Dr. Jerrod Rashid MD Attending Provider Active St art: November 28, 2024 Dr. Jerrod Rashid MD Referring Provider Active St art: November 28, 2024 Team Status: Inactive Member Role Status Dates Dr. Jerrod Rashid MD Primary Care Provider Active Start: December 14, 2024 End: December 14, 2024 KEO Cook Attending Provider Active Sta rt: December 14, 2024 End: December 14, 2024 KEO Cook Referring Provider Active Sta rt: December 14, 2024 End: December 14, 2024 Team Status: Inactive Member Role Status Dates Dr. Jerrod Rashid MD Primary Care Provider Active Start: January 27, 2025 End: January 27, 2025 Ganesh Loera NP [employer] TECHNICIAN-C Attending Provider Active Start: January 27, 2025 End: January 27, 2025 Ganesh Loera POWER PLANT TECHNICIAN [employer] TECHNICIAN-C Referring Provider Active Start: January 27, 2025 End: January 27, 2025 Team Status: Active Member Role Status Dates Dr. Jerrod Rashid MD Family Provider Active Dr. Jerrod Rashid MD Primary Care Provider Active Team Status: Inactive Member Role Status Dates Dr. Jerrod Rashid MD Primary Care Provide r, Attending Provider, Referring Provider Active Team Status: Inactive Member Role Status Dates Dr. Jerrod Rashid MD Primary Care Provider Active Dr. Adrián Simpson DO Attending Provider Active Team Status: Inactive Member Role Status Dates Dr. Jerrod Rashid MD Primary Care Provider Active Start: September 23, 2024 End: September 23, 2024 Dr. Jerrod Rashid MD Attending Provider Active St art: September 23, 2024 End: September 23, 2024 Dr. Jerrod Rashid MD Referring Provider Active St art: September 23, 2024 End: September 23, 2024 Team Status: Inactive Member Role Status Dates Dr. Jerrod Rashid MD Primary Care Provider Active Start: October 03, 2024 End: October 03, 2024 Salome CROWLEY PA-C Attending Provider Active S tart: October 03, 2024 End: October 03, 2024 Salome CROWLEY PA-C Referring Provider Active S tart: October 03, 2024 End: October 03, 2024 Team Status: Active Member Role/Relationship Status Dates Dr. Jerrod Rashid MD Primary Care Provider Active Team Status: Inactive Member Role/Relationship Status Dates Dr. Jerrod Rashid MD Primary Care Provider Active Start: November 28, 2024 End: November 28, 2024 Dr. Jerrod Rashid MD Attending Provider Active St art: November 28, 2024 End: November 28, 2024 Dr. Jerrod Rashid MD Referring Provider Active St art: November 28, 2024 End: November 28, 2024 Team Status: Inactive Member Role/Relationship Status Dates Dr. Jerrod Rashid MD Primary Care Provider Active Start: December 14, 2024 End: December 14, 2024 KEO Cook Attending Provider Active Sta rt: December 14, 2024 End: December 14, 2024 KEO Cook Referring Provider Active Sta rt: December 14, 2024 End: December 14, 2024 Team Status: Inactive Member Role/Relationship Status Dates Dr. Jerrod Rashid MD Primary Care Provider Active Start: January 27, 2025 End: January 27, 2025 Ganesh Loera POWER PLANT TECHNICIAN, [employer] TECHNICIAN-C Attending Provider Active Start: January 27, 2025 End: January 27, 2025 Ganesh Loera P[employer] PLANT TECHNICIAN, [employer] PLANT TECHNICIAN-C Referring Provider Active Start: January 27, 2025 End: January 27, 2025 Goals (unrecognized section and content) Goals may be documented in a n alternate sectionGoals may be documented in an alternate sectionGoals may be documented in an alternate sectionGoals may be documented in an alternate sectionGoals may be documented in an alternate section (unrecognized sect ion and content) No Status Records Found INFORMATION SOURCE (unrecogn ized section and content) DATE CREATED AUTHOR 03/13/2025 [facility] FOR RECORDS PERTAINING TO PATIENTS WHO ARE OR HAVE BEEN ENROLLED IN A CHEMICAL DEPENDENCY/SUBSTANCEABUSE PROGRAM, SOME INFORMATION MAY BE OMITTED. This clinical summary was aggregated from multiple sources. Caution should be exercised in using it in the provision of clinical care. This summary normalizes information from multiple sources, and as a consequence, information in this document may materially change the coding, format and clinical context of patient data. In addition, data may be omitted in some cases. CLINICAL DECISIONS SHOULD BE BASED ON THE PRIMARY CLINICAL RECORDS. [employer] provides no warranty or guarantee of the accuracy or completeness of information in this document.
[2025-03-18 12:49] LABS: AST(SGOT) 18 U/L (<=37); Alanine Aminotransfer ALT/SGPT 16 U/L (<=46); Cholesterol 190 mg/dL (<=190); Low Density Lipoprotein Calc. 138 mg/dL; Triglycerides 75 mg/dL; Very Low Density Lipoprotein 15 mg/dL (5-40); cholesterol:hdl ratio screen 5.18
== END | disposition home or self-care (01) ==
LOC: LAB 11:36
PROVIDERS: PCP Family Medicine; Referring Provider Physician Assistant Medical; Visit Provider Physician Assistant Medical
DX: Z79.899 Other long term (current) drug therapy (principal)
CPT/HCPCS: 36415; 80061; 84450; 84460